=== PATIENT | female | born 1950 | race Caucasian/White ===

== ENCOUNTER → 2018-10-31 | Outpatient (CLI) | payer MEDICARE | END | disposition home or self-care (01) | LOC: RAH 12:47 | PROVIDERS: ATTEND Physical Medicine & Rehabilitation | DX: M41.85 Other forms of scoliosis, thoracolumbar region (principal); M51.37 Other intervertebral disc degeneration, lumbosacral region | CPT/HCPCS: 72082; 72100 ==